=== PATIENT | male | born 1995 | race Caucasian/White ===

== ENCOUNTER 2021-07-12 14:46 | Emergency (ER) | payer SELFPAY ==
--- NOTE | 2021-07-12 14:46 | NUR ---
CALLED FOR TRIAGE AND UNABLE TO LOCATE PT
--- NOTE | 2021-07-12 15:01 | NUR ---
SECOND CALL FOR TRIAGE AND UNABLE TO LOCATE PT.
--- NOTE | 2021-07-12 15:27 | NUR ---
CALLED THIRD TIME FOR TRIAGE. UNABLE TO LOCATE PT.
== END 2021-07-12 15:27 | disposition left against medical advice (07) ==
LOC: SED 14:46
DX: J02.9 Acute pharyngitis, unspecified (principal); Z53.21 Procedure and treatment not carried out due to patient leaving prior to being seen by health care provider

== ENCOUNTER 2021-09-11 03:10 | Emergency (ER) | payer OTHER, SELFPAY ==
[~2021-09-11] VITALS: Ht 175.3 cm; Wt 60.8 kg
[2021-09-11 03:15] VITALS: BP_SYST 145
[2021-09-11] MEDS ORDERED: CEPH500C2 PO (03:59)
[2021-09-11] MEDS ORDERED: DIPH-TET-PERTUS Vaccine 0.5 ML VIAL (ADACEL) I.M. ONE (04:00)
[2021-09-11] MEDS ORDERED: BACITRACIN 1 GM OINT TP ONE (04:02)
[2021-09-11 04:30] VITALS: BP_SYST 145
== END 2021-09-11 04:30 | disposition home or self-care (01) ==
LOC: SED 03:10
DX: S61.213A Laceration without foreign body of left middle finger without damage to nail, initial encounter (principal); Z79.899 Other long term (current) drug therapy; W26.0XXA Contact with knife, initial encounter; Y93.89 Activity, other specified; Y92.89 Other specified places as the place of occurrence of the external cause; Y99.8 Other external cause status
CPT/HCPCS: 90715; 99283

== ENCOUNTER 2022-06-05 07:28 | Day surgery (SDC) | payer OTHER ==
[~2022-06-05] VITALS: Ht 177.8 cm; Wt 61.2 kg
[~2022-06-05 07:28] MED LIST: CEPH-548 PO
[2022-06-05] MEDS ORDERED: LR 1,000 ML IV SCH (10:15)
[2022-06-05] MEDS ORDERED: KETOROLAC TROMETHAMINE 30 MG VIAL IVP PRN (10:15)
[2022-06-05] MEDS ORDERED: HYDROmorphone 2 MG/ML VIAL IVP PRN (10:15)
[2022-06-05] MEDS ORDERED: HYDROmorphone 1 MG/ML INJ. CARTRIDGE IVP PRN (10:15)
[2022-06-05] MEDS ORDERED: ONDANSETRON HCL 4 MG/2 ML VIAL IVP PRN ×2 (10:15→11:30)
[2022-06-05] MEDS ORDERED: HYDROcodone/ACETAMIN 5-325 MG TAB (NORCO/ VICODIN) PO PRN (11:30)
[2022-06-05] MEDS ORDERED: ONDANSETRON 4 MG ODT TAB PO PRN (11:30)
[2022-06-05] MEDS ORDERED: HYDROmorphone 1 MG/ML INJ. CARTRIDGE ONE (12:45)
[2022-06-05 14:03] VITALS: BP_SYST 117
== END 2022-06-05 13:10 | disposition home or self-care (01) ==
LOC: SMU 07:28 → SDS 07:28
PROVIDERS: ATTEND Otolaryngology
DX: J03.90 Acute tonsillitis, unspecified (principal); J35.01 Chronic tonsillitis; G43.909 Migraine, unspecified, not intractable, without status migrainosus; Z20.822 Contact with and (suspected) exposure to COVID-19
CPT/HCPCS: 36415 ×2; 42826; 87426; 88304; J1170; U0003